=== PATIENT | male | born 1990 | race Asian ===

== ENCOUNTER 2021-07-31 23:30 | Emergency (ER) | payer OTHER ==
[~2021-07-31] VITALS: Ht 180.3 cm; Wt 90.7 kg
[2021-07-31 23:51] VITALS: BP 109/75
[2021-08-01] MEDS ORDERED: TETANUS-DIPTH-ACEL PERTUSSIS 0.5ML SYR Tdap IM ONE
== END 2021-08-01 00:15 | disposition home or self-care (01) ==
LOC: ER 23:30
DX: S61.512A Laceration without foreign body of left wrist, initial encounter (principal); W26.0XXA Contact with knife, initial encounter; Y93.89 Activity, other specified; Y92.89 Other specified places as the place of occurrence of the external cause; Y99.8 Other external cause status
CPT/HCPCS: 12002; 90471; 90715